=== PATIENT | female | born 1980 | race Caucasian/White ===

== ENCOUNTER 2017-09-23 16:23 | Emergency (ER) | payer SELFPAY ==
[2017-09-23 16:24] VITALS: BP 111/59; PULSE 77; RESP 16; TEMP 98.4; O2SAT 98
[2017-09-23] MEDS ORDERED: AMOX500T PO (17:07)
--- NOTE | 2017-09-23 17:09 | PD ---
HPI Chief Complaint: ENT Complaint Time Seen by Provider: 16:48 Travel History International Travel<30 days: No Contact w/Intl Traveler<30days: No Traveled to known affect area: No History of Present Illness HPI 36-year-old female here with bilateral ear pain left greater than right 2 days. She denies discharge from the ears. She denies fever or chills. No aggravating or alleviating factors. No associating symptoms. Symptom severity is moderate. PFSH Past Medical History Medical History: Denies Significant Hx LMP: 09/16/2017 Social History Tobacco Use: No Review of Systems Except as stated in HPI: all other systems reviewed are Neg General / Constitutional: No: Fever HENT: Positive: Earache Physical Exam Narrative GENERAL: Alert female well-appearing. SKIN: Warm and dry. HEAD: Normocephalic. EYES: No scleral icterus. No injection or drainage. EARS: Left TM erythema, bulging, loss of landmarks. Mild canal swelling no exudate. No mastoid tenderness. NECK: Supple, trachea midline. No lymphadenopathy. No meningismus. CARDIOVASCULAR: Regular rate and rhythm without murmurs, gallops, or rubs. RESPIRATORY: Breath sounds equal bilaterally. No accessory muscle use. GASTROINTESTINAL: Abdomen soft, non-tender, nondistended. MUSCULOSKELETAL: No cyanosis, or edema. BACK: Nontender without obvious deformity. No CVA tenderness. Data Data Last Documented VS Vital Signs Date Time Temp Pulse Resp B/P (MAP) Pulse Ox O2 Delivery O2 Flow Rate FiO2 09/23/17 16:24 98.4 77 16 111/59 (76) 98 Room Air MDM Medical Decision Making Medical Screen Exam Complete: Yes Emergency Medical Condition: Yes Differential Diagnosis Otitis media, otitis externa, mastoiditis Narrative Course 36-year-old female here with bilateral ear pain left greater than right 2 days. On exam patient has left TM, erythema, bulging, loss of landmarks. No mastoid tenderness. Vital signs are stable. Patient nontoxic appearing. Patient be treated for acute otitis media. Diagnosis Primary Impression: Otitis media Qualified Codes: H66.90 - Otitis media, unspecified, unspecified ear Referrals: Primary Care Physician Additional Instructions: Take antibiotics as prescribed. Take [id number] Motrin 800 mg every 6 hours as needed for pain. Scripts Amoxicillin (Amoxicillin) 500 Mg Tab 500 MG PO TID for Infection for 10 Days, TAB 0 Refills Prov: Miley Aguila 09/23/17 Disposition: 01 DISCHARGE HOME Condition: Stable Miley Aguila Sep 23, 2017 17:09
== END 2017-09-23 17:22 | disposition home or self-care (01) ==
LOC: NEPK 16:23
DX: H66.92 Otitis media, unspecified, left ear (principal)
CPT/HCPCS: 99283

== ENCOUNTER 2017-09-24 23:29 | Emergency (ER) | payer SELFPAY ==
[~2017-09-24] VITALS: Ht 167.6 cm; Wt 61.0 kg
[~2017-09-24 23:29] MED LIST: AMOX500T PO
[2017-09-24 23:30] VITALS: BP 176/107; PULSE 100; RESP 18; TEMP 98.8; O2SAT 99
[2017-09-25] MEDS ORDERED: NORC5TAB PO (00:40)
[2017-09-25] MEDS ORDERED: CIPR0.3S LEFT EAR (00:40)
[2017-09-25] MEDS ORDERED: ACETAMINOPHEN/HYDROcodone 325 MG/5 MG TAB PO ONE (00:45)
[2017-09-25] MEDS ORDERED: NEOMYCIN/POLYMYXIN/HYDROCORT OTIC SOLN 10 ML BTL LEFT EAR ONE (00:45)
--- NOTE | 2017-09-25 00:49 | PD ---
HPI Chief Complaint: ENT Complaint Time Seen by Provider: 00:18 Travel History International Travel<30 days: No Contact w/Intl Traveler<30days: No Traveled to known affect area: No History of Present Illness HPI 36-year-old white female presents to emergency Department with complaints of worsening left ear pain. She states that she was just seen in the ER was diagnosed with otitis media. She was given a prescription for amoxicillin. Since then she's had worsening swelling in her left ear with drainage. Patient states that her pain is severe. She's had swelling around her ear into her jaw. She states that she had a cold earlier in the week. She has had no fever chills. No alleviating symptoms. Worse with palpation. PFSH Past Medical History Medical History: Denies Significant Hx Diminished Hearing: No Tetanus Vaccination: Unknown Influenza Vaccination: No ?: Not LMP: 2 WEEKS AGO Past Surgical History Surgical History: No Previous Surgery Social History Alcohol Use: No Tobacco Use: No Substance Use: No Allergies-Medications (Allergen,Severity, Reaction): Coded Allergies: No Known Allergies (Unverified , 09/24/17) Reported Meds & Prescriptions Reported Meds & Active Scripts Active Ciprodex Otic Drops (Ciprofloxacin-Dexamethasone Otic Drops) 0.3-0.1% Susp 4 Drop LEFT EAR BID [place] (Hydrocodone-Acetaminophen) 5 Mg-325 Mg Tab 1 Tab PO Q4H PRN Amoxicillin 500 Mg Tab 500 Mg PO TID 10 Days Review of Systems General / Constitutional: No: Fever, Chills Eyes: No: Visual changes HENT: Positive: Ear Discharge, Earache, No: Headaches, Sore Throat, Congestion Cardiovascular: No: Chest Pain or Discomfort Respiratory: No: Cough, Shortness of Breath Gastrointestinal: No: Nausea, Vomiting, Diarrhea, Abdominal Pain Genitourinary: No: Dysuria Musculoskeletal: No: Pain Skin: No Rash Neurologic: No: Weakness Psychiatric: No: Depression Endocrine: No: Polydipsia Hematologic/Lymphatic: No: Easy Bruising Physical Exam Narrative GENERAL: Well-developed, well-nourished in no acute distress. Nontoxic appearing. HEAD: Patient has swelling to the left. Oh reticular area. She has large tender cervical lymph nodes as well as posterior cervical loads EYES: Pupils equal round and reactive. Extraocular motions intact. No scleral icterus. No injection or drainage. ENT: TMs clear without erythema. The external auditory canals clear. Nose: clear . Posterior pharynx is pink and moist. No tonsillar edema or exudate. Uvula midline. Airway patent. NECK: Trachea midline.Supple, nontender, moves head freely. No central bony tenderness or spasm. CARDIOVASCULAR: Regular rate and rhythm without murmurs, gallops, or rubs. RESPIRATORY: Clear to auscultation. Breath sounds equal bilaterally. No wheezes , rales, or rhonchi. GASTROINTESTINAL: Abdomen soft, non-tender, nondistended. No hepato-splenomegaly , or palpable masses. No guarding. EXTREMITIES: No clubbing, cyanosis, or edema. No joint tenderness, effusion, or edema noted. BACK: Nontender without deformity or crepitance. No flank tenderness. Data Data Last Documented VS Vital Signs Date Time Temp Pulse Resp B/P (MAP) Pulse Ox O2 Delivery O2 Flow Rate FiO2 09/24/17 23:30 98.8 100 18 176/107 (130) 99 Room Air Orders Orders Ceftriaxone Inj (Rocephin Inj) (09/25/17 00:45) Dyvqfvuf-Spfuvqfy-Rf Otic Soln (Cortispo (09/25/17 00:45) Acetamin-Hydrocod 325-5 Mg ([place] 5-325 (09/25/17 00:45) MDM Medical Decision Making Medical Screen Exam Complete: Yes Emergency Medical Condition: Yes Medical Record Reviewed: Yes Differential Diagnosis Differential diagnoses: Otitis media, otitis externa, pharyngitis, dental abscess, mono, mastoiditis, prostatitis Narrative Course Patient is given Rocephin 1 g IM, Cortisporin otic drops the left ear, Lortab 5 milligrams by mouth. Patient has a large amount of swelling to the preauricular area as well as discharge from the ear canal. I cannot see the TM due to the swelling and discharge. She has no pain on percussion of her mastoid. Patient will be treated for supprative otitis externa Diagnosis Primary Impression: Left otitis externa Qualified Codes: H60.312 - Diffuse otitis externa, left ear Referrals: [facility] 2 days Patient Instructions: General Instructions Departure Forms: Tests/Procedures, Work Release Special Instructions: No work 3 days Additional Instructions: Rest. Increase fluids. 3 Advil every 6 hours. Lortab for severe pain. Continue amoxicillin. Ciprodex. Follow-up with the [place] [facility] in 2 days. Return to the ER for emergencies. Med/Other Pt SpecificInfo: Prescription(s) given Scripts Ciprofloxacin-Dexamethasone Otic Drops (Ciprodex Otic Drops) 0.3-0.1% Susp 4 DROP LEFT EAR BID for Infection, #1 BOTTLE 0 Refills Prov: Gavino Underwood MD 09/25/17 Hydrocodone-Acetaminophen ([place]) 5 Mg-325 Mg Tab 1 TAB PO Q4H Y for PAIN, #12 TAB 0 Refills Prov: Gavino Underwood MD 09/25/17 Disposition: 01 DISCHARGE HOME Condition: Stable Nikita Mondragon Sep 25, 2017 00:49
== END 2017-09-25 01:46 | disposition home or self-care (01) ==
LOC: NEPD 23:29
DX: H60.92 Unspecified otitis externa, left ear (principal); Z79.2 Long term (current) use of antibiotics
CPT/HCPCS: 99283; J0696